=== PATIENT | female | born 1995 | race Caucasian/White ===

== ENCOUNTER 2017-11-13 21:39 | Emergency (ER) | payer MEDICAID, OTHER ==
[2017-07-05 15:07] VITALS: BMI 36.2
--- NOTE | 2017-11-13 22:59 | OBHP ---
Datetime: 11/13/2017 22:49 IP Adm Impression: No Active Labor; Intact Membranes IP Admit Plan: Observation/Evaluation; Discharge home Admit Comment, IP Provider: 21-year-old parous at 40 weeks and 3 days gestational age presents to OB ED complaining of contractions and possible leakage of fluids. Patient denies any vaginal bleeding. Patient reports good movement. records reviewed. Otherwise, patient without complaints . Past medical history denies Past surgical history denies Medications vitamins No known drug allergies Social history denies tobacco, drugs, alcohol Physical exam: Refer to physical exam findings Assessment: 40 weeks and 3 days gestational age, no evidence of active labor at this time, no evidence of spon taneous rupture of membranes at this time, vaginal candidiasis, category 1 heart tracing Plan: Patient observed at OB ED Patient discharged home with labor precautions Patient already scheduled for induction of labor in 3 days Discussed plan with patient all patient questions answered. Pelvic Type - PN: Adequate Extremities - PN: Normal Abdomen - PN: Normal Back - PN: Normal Breast - PN: Normal Lungs - PN: Normal Heart - PN: Normal Thyroid - PN: Normal Neurologic - PN: Normal HEENT - PN: Normal General - PN: Normal FHR - Baseline A Provider: 130s Membranes, Provider: Intact Contraction Comments Provider: Occasional Comments, ACOG Physical Exam: Sterile speculum exam: No fluid in vagina, no fluid from cervix with Valsalva Positive white thick discharge consistent with candidiasis Pool Provider: Negative IP Hx Assessment: The History has been Reviewed and is Current EGA AdmitDate IP: 40.3 Vital Signs Provider: Reviewed; Within Normal Limits IP Chief Complaint: Uterine contractions; Suspected ruptured membranes NICHD Variability Prov Fetus A: Moderate 6-25bpm NICHD Accel Fetus A IP Provider: [id number] FHR Category Provider Fetus A: Category I NICHD Decel Fetus A IP Provider: None Dilatation, Provider: 1-2 Effacement, Provider: 25 Station, Provider: -2 Genitourinary Exam: Normal DTRs - PN: Normal
[2017-11-14 03:25] VITALS: BP 124/80; PULSE 79; RESP 17; TEMP 98.2
== END 2017-11-13 23:15 | disposition home or self-care (01) ==
LOC: H.EROB2 21:39
DX: O47.1 False labor at or after 37 completed weeks of gestation (principal); O48.0 Post-term pregnancy; Z3A.40 40 weeks gestation of pregnancy; O34.63 Maternal care for abnormality of vagina, third trimester; N89.8 Other specified noninflammatory disorders of vagina